=== PATIENT | male | born 1990 | race Caucasian/White ===

== ENCOUNTER 2022-09-16 23:21 | Emergency (ER) | payer OTHER ==
[2022-09-16 23:32] VITALS: TEMP 98.9
[2022-09-16] MEDS ORDERED: NALOXONE 0.4 MG/ML 1 ML VIAL IVP STA (23:35)
--- NOTE | 2022-09-16 23:43 | ED ---
General Adult HPI - General Source: patient Mode of arrival: ambulatory Limitations: no limitations <Abiodun Yadav - Last Filed: 09/17/22 00:22> <Rolando Berry - Last Filed: 09/26/22 06:02> - General Chief complaint: Overdose Stated complaint: Overdose Time Seen by Provider: 09/16/22 23:32 - History of Present Illness Initial comments: Dictation was produced using [employer] dictation software. please excuse any grammatical, word or spelling errors. Chief Complaint: 31-year-old male presents emergency department with overdose History of Present Illness: 31-year-old male he was dropped off by an unknown person. Patient was doing it started 1 g of fentanyl. Patient is a poor historian at this time. Unable to obtain ROS secondary to mental status (Abiodun Yadav) - Related Data Allergies Allergy/AdvReac Type Severity Reaction Status Date / Time No Known Allergies Allergy Verified 09/16/22 23:52 Review of Systems ROS Other: All systems not noted in ROS Statement are negative. <Abiodun Yadav - Last Filed: 09/17/22 00:22> ROS Other: All systems not noted in ROS Statement are negative. <Rolando Berry - Last Filed: 09/26/22 06:02> ROS Statement: Those systems with pertinent positive or pertinent negative responses have been documented in the HPI. Past Medical History Past Medical History: No Reported History Past Surgical History: No Surgical Hx Reported Past Drug Use History: Opiates <Abiodun Yadav - Last Filed: 09/17/22 00:22> General Exam Limitations: no limitations <Abiodun Yadav - Last Filed: 09/17/22 00:22> - General Exam Comments Initial Comments: PHYSICAL EXAM: General Impression: Somnolent HEENT: Normocephalic atraumatic, extra-ocular movements intact, pinpoint pupils, mucous membranes moist. Cardiovascular: Heart regular rate and rhythm Chest: no retractions, no tachypnea Abdomen: abdomen soft, non-tender, non-distended, no organomegaly Musculoskeletal: Pulses present and equal in all extremities, no peripheral edema Motor: no focal deficits noted Neurological: CN II-XII grossly intact, no focal motor or sensory deficits noted Skin: Intact with no visualized rashes (Abiodun Yadav) Course <Abiodun Yadav - Last Filed: 09/17/22 00:22> Vital Signs 09/16/22 09/16/22 09/17/22 23:28 23:49 00:00 Temperature 98.9 F Pulse Rate 89 125 H Respiratory 20 6 L 13 Rate Blood Pressure 122/68 131/80 O2 Sat by Pulse 92 L 96 Oximetry 09/17/22 09/17/22 09/17/22 01:00 02:00 03:00 Temperature Pulse Rate 96 84 84 Respiratory 17 12 16 Rate Blood Pressure 113/63 113/63 114/68 O2 Sat by Pulse 94 L 97 94 L Oximetry - Reevaluation(s) Reevaluation #1: 09/16/22 23:57 Patient given 0.1 mg of Narcan. His mentation improved without becoming overly agitated, diaphoretic and nauseated. (Abiodun Yadav) Medical Decision Making <Aibodun Yadav - Last Filed: 09/17/22 00:22> - Lab Data Result diagrams: 09/16/22 23:40 09/16/22 23:40 <Rolando Berry - Last Filed: 09/26/22 06:02> - Medical Decision Making Was pt. sent in by a medical professional or institution ([facility], IMAGE CONSULTANT, urgent care, hospital, or intermediate...) When possible be specific @ -No Did you speak to anyone other than the patient for history (EMS, parent, family, police, friend...)? What history was obtained from this source @ -No Did you review nursing and triage notes (agree or disagree)? Why? @ -I reviewed and agree with nursing and triage notes Were old charts reviewed (outside hosp., previous admission, EMS record, old EKG, old radiological studies, urgent care reports/EKG's, intermediate records)? Report findings @ -No old charts were reviewed Differential Diagnosis (chest pain, altered mental status, abdominal pain women, abdominal pain men, vaginal bleeding, musculoskeletal, weakness, fever, dyspnea, syncope, headache, dizziness, GI bleed, back pain, seizure, CVA, palpatations, mental health)? @ -Differential Altered Mental Status: Hypoglycemia, DKA, hypercapnia, ETOH, overdose, CO poisoning, trauma, myxedema coma, HTN encephalopathy, infection, encephalitis, psychosis, intercranial hemor rhage, hepatic encephalopathy, meningitis, CVA, this is not meant to be an all- inclusive list EKG interpreted by me (3pts min.). @ -None done X-rays interpreted by me (1pt min.). @ -None done CT interpreted by me (1pt min.). @ -None done U/S interpreted by me (1pt. min.). @ -None done What testing was considered but not performed or refused? (CT, X-rays, U/S, labs)? Why? @ -None What meds were considered but not given or refused? Why? @ -None Did you discuss the management of the patient with other professionals (professionals i.e. , PA, IMAGE CONSULTANT, lab, RT, psych nurse, social worker clinical, wage hand, teacher, property and supply officer, spring encaser)? Give summary @ -No Was smoking cessation discussed for >3mins.? @ -No Was critical care preformed (if so, how long)? @ -33 minutes Were there social determinants of health that impacted care today? How? (Homelessness, low income, unemployed, alcoholism, drug addiction, transportation, low edu. Level, literacy, decrease access to med. care, correction, rehab)? @ -No Was there de-escalation of care discussed even if they declined (Discuss DNR or withdrawal of care, Hospice)? DNR status @ -No What co-morbidities impacted this encounter? (DM, HTN, Smoking, COPD, CAD, Cancer, CVA, ARF, Chemo, Hep., AIDS, mental health diagnosis, sleep apnea, morbid obesity)? @ -None Was patient admitted / discharged? Hospital course, mention meds given and route, prescriptions, significant lab abnormalities, going to OR and other pertinent info. @ -31 Year-old male presents emergency department with reported overdose. Patient extremely someone at the bedside. Given 0.10 g of Narcan with mild improvement of his mentation. Undiagnosed new problem with uncertain prognosis? @ -No Drug Therapy requiring intensive monitoring for toxicity (Heparin, Nitro, Insulin, Cardizem)? @ -No Were any procedures done? @ -No Diagnosis/symptom? Acute, or Chronic, or Acute on Chronic? Uncomplicated (without systemic symptoms) or Complicated (systemic symptoms)? @ -1. Opiate overdose Side effects of treatment? @ -No Exacerbation, Progression, or Severe Exacerbation? @ -No Poses a threat to life or bodily function? How? (Chest pain, [place], [place], pneumonia, PE, COPD, DKA, ARF, appy, cholecystitis, CVA, Diverticulitis, Homicidal, Suicidal, threat to staff... and all critical care pts) @ -yes Patient care signed out to Dr. Berry at 1am (Abiodun Yadav) - Lab Data Lab Results 09/16/22 09/16/22 Range/Units 23:40 23:40 WBC 8.4 (3.8-10.6) k/uL RBC 4.84 (4.30-5.90) m/uL Hgb 14.0 (13.0-17.5) gm/dL Hct 41.4 (39.0-53.0) % MCV 85.5 (80.0-100.0) fL MCH 28.8 (25.0-35.0) pg MCHC 33.8 (31.0-37.0) g/dL RDW 14.8 (11.5-15.5) % Plt Count 261 (150-450) k/uL MPV 7.6 Neutrophils % 56 % Lymphocytes % 33 % Monocytes % 6 % Eosinophils % 3 % Basophils % 0 % Neutrophils # 4.7 (1.3-7.7) k/uL Lymphocytes # 2.8 (1.0-4.8) k/uL Monocytes # 0.5 (0-1.0) k/uL Eosinophils # 0.2 (0-0.7) k/uL Basophils # 0.0 (0-0.2) k/uL Sodium 140 (137-145) mmol/L Potassium 3.8 (3.5-5.1) mmol/L Chloride 98 (98-107) mmol/L Carbon Dioxide 29 (22-30) mmol/L Anion Gap 13 mmol/L BUN 12 (9-20) mg/dL Creatinine 0.99 (0.66-1.25) mg/dL Est GFR (CKD-EPI)AfAm >90 (>60 ml/min/1.73 sqM) Est GFR (CKD-EPI)NonAf >90 (>60 ml/min/1.73 sqM) Glucose 141 H (74-99) mg/dL Calcium 8.6 (8.4-10.2) mg/dL Disposition <Abiodun Yadav - Last Filed: 09/17/22 00:22> Is patient prescribed a controlled substance at d/c from ED?: No <Rolando Berry - Last Filed: 09/26/22 06:02> Clinical Impression: Overdose Disposition: HOME SELF-CARE Condition: Good Instructions (If sedation given, give patient instructions): Adult Overdose (ED) Referrals: None,Stated [Primary Care Provider] - 1-2 days
[2022-09-17 00:23] LABS: African American GFR (CKD) >90 (>60 ml/min/1.73 sqM); Anion Gap 13 mmol/L; Blood Urea Nitrogen 12 mg/dL (9-20); Calcium 8.6 mg/dL (8.4-10.2); Carbon Dioxide 29 mmol/L (22-30); Chloride 98 mmol/L (98-107); Glucose 141 mg/dL (74-99); Non-African American GFR(CKD) >90 (>60 ml/min/1.73 sqM); Potassium 3.8 mmol/L (3.5-5.1); Sodium 140 mmol/L (137-145)
[2022-09-17 00:33] LABS: Basophils % (A) 0 %; Eosinophils # (A) 0.2 k/uL (0-0.7); Eosinophils % (A) 3 %; HCT 41.4 % (39.0-53.0); Lymphocytes # (A) 2.8 k/uL (1.0-4.8); Lymphocytes % (A) 33 %; MCH 28.8 pg (25.0-35.0); MCHC 33.8 g/dL (31.0-37.0); MCV 85.5 fL (80.0-100.0); Mean Platelet Volume 7.6; Monocytes # (A) 0.5 k/uL (0-1.0); Monocytes % (A) 6 %; Neutrophils # (A) 4.7 k/uL (1.3-7.7); Neutrophils % (A) 56 %; Platelet Count 261 k/uL (150-450); RBC 4.84 m/uL (4.30-5.90); RDW 14.8 % (11.5-15.5); WBC 8.4 k/uL (3.8-10.6)
--- NOTE | 2022-09-17 01:35 | XR ---
EXAM: XR Chest, 1 View CLINICAL HISTORY: Opiate overdose. TECHNIQUE: Frontal view of the chest. COMPARISON: No relevant prior studies available. FINDINGS: Lungs: Unremarkable. No acute infiltration, atelectasis or mass. Pleural space: Unremarkable. No pneumothorax or pleural fluid. Heart: Unremarkable. No cardiomegaly. Mediastinum: Unremarkable. Bones/joints: No acute findings. IMPRESSION: No acute findings in the chest.
[2022-09-17 04:46] VITALS: BP 114/68; PULSE 84; RESP 16
== END 2022-09-17 03:30 | disposition home or self-care (01) ==
LOC: EC 23:21
DX: T40.601A Poisoning by unspecified narcotics, accidental (unintentional), initial encounter (principal); F11.90 Opioid use, unspecified, uncomplicated
CPT/HCPCS: 36415; 80048; 85025; 71045; 99284; 96374; J2310

== ENCOUNTER 2024-10-31 18:40 | Emergency (ER) | payer OTHER ==
[2024-10-31 18:44] VITALS: BP 118/70; PULSE 81; RESP 16; TEMP 99.3
== END 2024-10-31 19:32 | disposition home or self-care (01) ==
LOC: EC 18:40
DX: Z02.83 Encounter for blood-alcohol and blood-drug test (principal)
CPT/HCPCS: 99499